=== PATIENT | male | born 1960 | race Caucasian/White ===

== ENCOUNTER 2016-12-01 08:00 | Outpatient (RCR) | payer OTHER ==
[2016-08-02 23:10] VITALS: BP 142/113
[~2016-12-01 08:00] MED LIST: LISINOPRIL40 MG PO; TOPROL-XL200 MG PO
== END 2017-01-20 14:29 | disposition home or self-care (01) ==
LOC: PT 08:00
DX: M75.102 Unspecified rotator cuff tear or rupture of left shoulder, not specified as traumatic (principal)